=== PATIENT | male | born 1985 | race Caucasian/White ===

== ENCOUNTER 2018-08-06 09:57 | Inpatient (IN) | payer OTHER ==
[2018-08-06] MEDS ORDERED: POLYMYXIN/BACITRACIN 1L IRRIG (12:37)
[2018-08-06] MEDS ORDERED: OXYCODONE/ACETAMINOPHEN (5/325) TAB PO (13:00)
[2018-08-06] MEDS ORDERED: THROMBIN 20,000 UNIT VIAL ZFS (13:00)
[2018-08-06] MEDS ORDERED: ALBUTEROL 0.083% (NEB) 2.5 MG/3 ML AMP HHN (13:00)
[2018-08-06] MEDS ORDERED: LABETALOL HCL 20MG INJ IV (13:00)
[2018-08-06] MEDS ORDERED: HYDROmorphONE 1 MG/5 ML IV SYRINGE IV ×2 (13:00)
[2018-08-06] MEDS ORDERED: FENTAnyl 50 MCG/ML VIAL IV ×2 (13:00)
[2018-08-06] MEDS ORDERED: METOCLOPRAMIDE 10 MG INJ IV (13:00)
[2018-08-06] MEDS ORDERED: FENTAnyl 50 MCG/ML VIAL ×2 (13:08→14:19)
[2018-08-06] MEDS ORDERED: ONDANSETRON 4 MG INJ IV (13:30)
[2018-08-06] MEDS ORDERED: NALOXONE (0.4 MG/ML) INJ IV (13:30)
[2018-08-06] MEDS ORDERED: ACETAMINOPHEN 325 MG TAB PO (13:30)
[2018-08-06] MEDS ORDERED: PROCHLORPERAZINE 10 MG TAB PO (13:30)
[2018-08-06] MEDS ORDERED: BISACODYL 10 MG SUPP PR (13:30)
[2018-08-06] MEDS ORDERED: CEPASTAT LOZENGE MT (13:30)
[2018-08-06] MEDS ORDERED: MIDAZOLAM 1 MG/ML 2 ML INJ (13:38)
[2018-08-06] MEDS: CEFAZOLIN 1 GM/50 ML (PMX) 50 ML IVPB ×2 (13:50→21:42)
[2018-08-06] MEDS ORDERED: BUPIVACAINE 0.25%/EPI (SDV) 10 ML INJ (13:56)
[2018-08-06] MEDS ORDERED: GELATIN SIZE 100 SPONGE (13:59)
[2018-08-06] MEDS: GELATIN COMPRESSED 100CM SPONGE TOP (14:10)
[2018-08-06] MEDS: POLYMYXIN/BACITRACIN 1L IRRIG IRR (14:10)
[2018-08-06] MEDS: BUPIVACAINE 0.25%/EPI (SDV) 10 ML INJ (14:10)
[2018-08-06] MEDS: BUPIVACAINE 0.25% (MPF) 30 ML INJ (15:02)
[2018-08-06] MEDS ORDERED: LIDOCAINE 100 MG SYRINGE (15:23)
[2018-08-06] MEDS ORDERED: NEOSTIGMINE 3 MG/3 ML SYRINGE (15:23)
[2018-08-06] MEDS ORDERED: GLYCOPYRROLATE 0.4 MG INJ (15:23)
[2018-08-06] MEDS ORDERED: ROCURONIUM 50 MG INJ (15:23)
[2018-08-06] MEDS ORDERED: SUCCINYLCHOLINE CHLORIDE 100 MG/5 ML SYG IV (15:23)
[2018-08-06] MEDS ORDERED: PROPOFOL 40 ML (15:23)
[2018-08-06] MEDS ORDERED: CEFAZOLIN 1 GM INJ (15:23)
[2018-08-06] MEDS: FENTAnyl 50 MCG/ML VIAL IV ×2 (15:52→16:09)
[2018-08-06] MEDS: DIPHENHYDRAMINE 50 MG INJ IV (15:54)
[2018-08-06] MEDS: HYDROmorphONE 1 MG/5 ML IV SYRINGE IV (16:00)
[2018-08-06] MEDS: MEPERIDINE 25 MG INJ IV (16:00)
[2018-08-06] MEDS: ONDANSETRON 4 MG INJ IV (16:11)
[2018-08-06] MEDS: HYDROmorphONE 0.5 MG/0.5 ML SYG IV ×2 (17:03→23:42)
[2018-08-06] MEDS: BUSPIRONE 10 MG TAB PO (19:52)
[2018-08-06] MEDS: OXYCODONE/ACETAMINOPHEN (10/325) TAB PO (19:53)
[2018-08-06] MEDS: NICOTINE (21 MG/24 HR) PATCH TRANSDERM (19:53)
[2018-08-06] MEDS ORDERED: DOCUSATE SODIUM 100 MG CAP PO (19:55)
[2018-08-06] MEDS: DOCUSATE SODIUM 100 MG CAP PO (19:55)
[2018-08-06] MEDS: CYCLOBENZAPRINE 10 MG TAB PO (21:41)
[2018-08-06] MEDS: BUPROPION (XL) 150 MG TAB PO (21:42)
[2018-08-07] MEDS: OXYCODONE/ACETAMINOPHEN (10/325) TAB PO ×4 (03:39→12:52)
[2018-08-07 05:17] LABS: ADD MAN DIFF? NO
[2018-08-07 05:26] LABS: WHITE BLOOD COUNT 13.4 10^3/ul (4.8-10.8)
[2018-08-07 05:26] LABS: BASOPHIL # 0.1 10^3/ul (0.0-0.1); BASOPHILS % 0.5 % (0.0-2.0); EOSINOPHILS # 0.3 10^3/ul (0.0-0.5); EOSINOPHILS % 1.9 % (0.0-7.0); HEMOGLOBIN 12.8 g/dl (14.0-18.0); LYMPHOCYTES # 2.5 10^3/ul (0.8-2.9); LYMPHOCYTES % 18.5 % (15.0-51.0); MEAN CORPUSCULAR HEMOGLOBIN 30.3 pg (29.0-33.0); MEAN CORPUSCULAR HGB CONC 33.7 g/dl (32.0-37.0); MEAN CORPUSCULAR VOLUME 89.8 fl (82.0-101.0); MEAN PLATELET VOLUME 9.8 fl (7.4-10.4); MONOCYTE # 0.9 10^3/ul (0.3-0.9); MONOCYTES % 6.9 % (0.0-11.0); NEUTROPHIL # 9.6 10^3/ul (1.6-7.5); NEUTROPHILS % 71.6 % (39.0-77.0); PLATELET COUNT 317 10^3/UL (140-415); RED BLOOD COUNT 4.23 10^6/ul (4.70-6.10); RED CELL DISTRIBUTION WIDTH 12.2 % (11.5-14.5)
[2018-08-07 05:44] LABS: ANION GAP 9 (5-13); BLOOD UREA NITROGEN 11 mg/dl (7-20); CALCIUM 8.3 mg/dl (8.4-10.2); CARBON DIOXIDE 27 mmol/L (21-31); CHLORIDE 107 mmol/L (97-110); Estimated GFR > 60 mL/min (>60); GLUCOSE 106 mg/dl (70-220); POTASSIUM 3.9 mmol/L (3.5-5.1); SODIUM 143 mmol/L (135-144)
[2018-08-07] MEDS: PANTOPRAZOLE (EC) 40 MG TAB PO (06:05)
[2018-08-07] MEDS: CYCLOBENZAPRINE 10 MG TAB PO (06:05)
[2018-08-07] MEDS: CEFAZOLIN 1 GM/50 ML (PMX) 50 ML IVPB (06:05)
[2018-08-07] MEDS: NICOTINE (21 MG/24 HR) PATCH TRANSDERM (08:59)
[2018-08-07] MEDS: DOCUSATE SODIUM 100 MG CAP PO (08:59)
[2018-08-07] MEDS ORDERED: AMPHET ASP AMPHET D AMPHET PO (09:00)
[2018-08-07] MEDS ORDERED: BUPROPION (XL) 150 MG TAB PO (09:00)
[2018-08-07] MEDS: BUSPIRONE 10 MG TAB PO (10:03)
== END 2018-08-07 15:00 | disposition home or self-care (01) | DRG 460 ==
LOC: REC 09:57 → MS1 16:37
PROC: 0SG00A0 Fusion of Lumbar Vertebral Joint with Interbody Fusion Device, Anterior Approach, Anterior Column, Open Approach (ICD-10-PCS; principal; 2018-08-06 13:00)
DX: M51.36 Other intervertebral disc degeneration, lumbar region (principal); M47.9 Spondylosis, unspecified; G89.29 Other chronic pain; M54.9 Dorsalgia, unspecified; F41.9 Anxiety disorder, unspecified; F17.200 Nicotine dependence, unspecified, uncomplicated; I70.219 Atherosclerosis of native arteries of extremities with intermittent claudication, unspecified extremity; Z98.1 Arthrodesis status
CPT/HCPCS: 72100; 80048; 83735; 84100; 85025; 86850; 86900; 86901; 86920; 87086; 88304; 97110; 97116; 97162; 97530